=== PATIENT | male | born 1970 | race Hispanic/Latino ===

== ENCOUNTER 2018-12-17 11:06 | Day surgery (SDC) | payer OTHER, BC | END 2018-12-18 14:30 | disposition home or self-care (01) | LOC: CATH 11:06 → CCU 14:31 | DX: I21.4 Non-ST elevation (NSTEMI) myocardial infarction (principal); I25.10 Atherosclerotic heart disease of native coronary artery without angina pectoris; I10 Essential (primary) hypertension; Z95.5 Presence of coronary angioplasty implant and graft ==

== ENCOUNTER 2018-12-29 06:04 | Day surgery (SDC) | payer BC ==
[2018-12-17 22:27] VITALS: BMI 20.9
[2018-12-29] MEDS ORDERED: Lidocaine PF 2% (5 ml) Inj (For Cardiac Arrhy) ONE (06:55)
[2018-12-29] MEDS ORDERED: Iodixanol 320 MG/ML 100 ML BOTTLE IV ONE (06:56)
[2018-12-29] MEDS ORDERED: Phenylephrine 10 mg/ml Inj ONE (06:56)
[2018-12-29] MEDS ORDERED: Iohexol 350mgl/ml 50 ML ONE (06:56)
[2018-12-29] MEDS ORDERED: Nitroglycerin 50mg in D5W 50 MG/250 ML BOTTLE IV ONE (06:56)
[2018-12-29] MEDS ORDERED: Iodixanol 320 MG/ML 200 ML BOTTLE IV ONE (06:56)
[2018-12-29 07:05] LABS: BASO # 0.01 K/mm3 (0.0-2.0); BASO % 0.2 % (0.0-3.0); EOS # 0.2 (0.0-0.7); EOS % 3.5 % (1.5-5.0); HEMOGLOBIN 14.7 g/dL (14.0-18.0); LYMPH % 20.9 % (22.0-35.0); MEAN CELL VOLUME 91.6 fl (80.0-105.0); MEAN CORPUSCULAR HEMOGLOBIN 30.2 pg (25.0-35.0); MEAN PLATELET VOLUME 11.2 fl (7.0-11.0); MONO # 0.7 (0.1-0.6); MONO % 14.6 % (1.0-6.0); RBC 4.86 10^6/uL (3.5-6.1); RED CELL DISTRIBUTION WIDTH 12.8 % (11.5-14.5); WHITE BLOOD COUNT 4.8 10^3/uL (4.5-11.0)
[2018-12-29 07:10] LABS: INR 1.11; PARTIAL THROMBOPLASTIN TIME 32.7 Seconds (26.9-38.3); PROTHROMBIN TIME 12.5 SECONDS (9.4-12.5)
[2018-12-29 07:15] VITALS: O2SAT 97
[2018-12-29 07:20] LABS: BLOOD UREA NITROGEN 20 mg/dL (7-21); GFR NON-AFRICAN AMERICAN > 60
[2018-12-29] MEDS ORDERED: Midazolam 2 MG/2 ML VIAL ONE ×3 (07:51→08:14)
[2018-12-29] MEDS ORDERED: Sodium Chloride 0.9% 1,000 ML IV SCH (09:30)
--- NOTE | 2018-12-29 15:06 | CARDCATH ---
PROCEDURE DATE: 12/29/2018 HISTORY: The patient is a 48-year-old male with aggressive atherosclerosis who has documented multivessel PTCA and stent and has had multiple procedures in the past. He presents for PTCA of the RCA. The left femoral artery was cannulated with 6-Gambian sheath. There were no complications. I performed moderate sedation which included the presence of an independent trained observer that assisted in monitoring the patient's level of consciousness and physiologic status. After administration of Versed and fentanyl, my intra service time was 45 minutes. The findings on catheterization revealed a right dominant circulation. The RCA revealed 90% stenosis in its proximal portion as well as 90% stenosis in a small posterior lateral branch. The left main artery was unremarkable. The proximal LAD revealed a long 50-60% stenosis which is unchanged from his previous. The stent in the mid LAD, which was placed recently, is patent. There is diffuse atherosclerosis throughout its coronary tree. Circumflex artery revealed a patent stent in its midportion with 40-50% stenosis in the proximal circumflex artery. The patient was started on intravenous Angiomax on the fluoroscopic guide, the guider was placed in the ostium of the RCA using an ATW wire as well as a guide liner for better support, the posterior lateral branch was angioplastied with a 2.0 balloon. Because of the caliber of the posterior lateral branch, no stent was placed. Repeat coronary arteriography revealed improvement of the lesion. The proximal RCA stenoses was stented with a 2.75 x 12 mm drug-eluting stent followed by a 3.08-mm stent. Repeat coronary arteriography revealed an excellent result with no residual stenosis and GINA-3 flow. Angio-Seal did not obtain hemostasis which required prolonged manual compression. IMPRESSION: In summary, the procedure was successful percutaneous transluminal coronary angioplasty and stent of a proximal right coronary artery with drug-eluting stent as well as percutaneous transluminal coronary angioplasty of distal right coronary artery. Cardiac catheterization reveals patent stents in the circumflex artery and left anterior descending as well as diffuse atherosclerosis throughout its coronary tree. PRU testing revealed therapeutic Plavix. Given these findings, the patient will need to remain on aspirin indefinitely and Plavix for at least a year. The patient has been taking statin therapy for more than 8 years and yet his atherosclerosis continues to be aggressive. I have discussed with the family about the need for Repatha to help reduce the chance of progressive atherosclerosis. Daniel Jackson MD
[2018-12-29 16:15] LABS: HEMOGLOBIN 14.2 g/dL (14.0-18.0); MEAN CELL VOLUME 91.8 fl (80.0-105.0); MEAN CORPUSCULAR HEMOGLOBIN 30.6 pg (25.0-35.0); MEAN CORPUSCULAR HGB CONC 33.3 g/dl (31.0-37.0); MEAN PLATELET VOLUME 10.6 fl (7.0-11.0); RBC 4.64 10^6/uL (3.5-6.1); RED CELL DISTRIBUTION WIDTH 12.8 % (11.5-14.5); WHITE BLOOD COUNT 5.4 10^3/uL (4.5-11.0)
[2018-12-29 16:19] LABS: BLOOD UREA NITROGEN 14 mg/dL (7-21); CALCIUM 9.5 mg/dL (8.4-10.5); GFR NON-AFRICAN AMERICAN > 60
[2018-12-29 17:24] VITALS: RESP 18
--- NOTE | 2018-12-29 22:31 | HP ---
DATE OF EXAM: 12/29/2018 HISTORY OF PRESENT ILLNESS: I was called by Dr. Jackson to take a look at him, put him on my service and admit him and do the H and P, he is status post cardiac cath with stents placed. He is a 48-year-old white male who presents with a history of needing a 5th heart stent as per his . He had some shortness of breath and not feeling well and Dr. Jackson took him to the laboratory tech and stented him. PAST MEDICAL HISTORY: He has a past medical history of CAD, coronary artery stents, and high cholesterol. FAMILY HISTORY: Cancer in the aunt, unknown type. He had balloon dilatation in 12/17/2018. Uncles have cardiovascular disease. No pacemaker. He did have chest pain and shortness of breath, which brought him to where he is right now. No depression or anxiety. SOCIAL HISTORY: He quit smoking 8 years ago. No alcohol. No drugs. PAST SURGICAL HISTORY: He did have history of surgeries, cardiac cath. ALLERGIES: NO KNOWN DRUG ALLERGIES. REVIEW OF SYSTEMS: No acute vision or hearing changes. No sore throat. No neck pain. He did have chest pain. He did have shortness of breath. No palpitations. No coughing or wheezing. No abdominal pain. No nausea, vomiting, constipation, or diarrhea. No skin issues that he knows of. He move all four extremities well. PHYSICAL EXAMINATION: VITAL SIGNS: He has a 97.7 temp, 53 pulse, 130/78 blood pressure, 18 respiratory rate, and 97% O2 sat on room air. HEENT: Head: Atraumatic and normocephalic. Extraocular muscles are intact. Pupils are equally reactive to light and accommodation. Throat is moist. NECK: Supple. Thyroid midline. No palpable appreciable lymphadenopathy. HEART: Regular rate. LUNGS: Decreased breath sounds, but clear to auscultation. No wheezes, rhonchi or rales. ABDOMEN: Soft and nontender. Positive bowel sounds. No guarding. No rebound. No CVA tenderness. EXTREMITIES: No edema. SKIN: He is lying flat, he cannot be move for what I could tell skin is intact. No apparent rashes or ulcers. NEUROLOGIC: Alert and oriented x3. Cranial nerves II through XII grossly intact. He is pleasant. No pain, status post cardiac cath. He has laid flat for 6 hours. LABORATORY DATA: He had blood tests. He has 143 sodium, potassium is 5.3, little elevated, we will check it tomorrow, BUN 20, creatinine 1.2, GFR is greater than 60, sugar is 95, and calcium is 10. INR is 1.11. White count is 4.8, hemoglobin is 14.7, hematocrit is 44.5, and platelets are 190. ASSESSMENT AND PLAN: He is currently on aspirin, Lipitor, Plavix, and IV fluids at 100. We will check his labs tomorrow, he laid flat for 6 hours. He could eat while lying flat and then will be able to get up and move around to the room. Hopefully, if he will do well tonight and tomorrow, discharge him tomorrow. He has chest pain, shortness of breath, coronary artery disease, and stents were placed by Dr. Daniel Jackson. Angelito Gomez DO MTDD
[2018-12-30 06:11] VITALS: BP 119/72; PULSE 60; TEMP 97.7
[2018-12-30 07:18] LABS: BASO # 0.02 K/mm3 (0.0-2.0); BASO % 0.4 % (0.0-3.0); EOS # 0.2 (0.0-0.7); EOS % 4.3 % (1.5-5.0); HEMOGLOBIN 14.7 g/dL (14.0-18.0); LYMPH # 1.3 (1.2-3.4); LYMPH % 23.9 % (22.0-35.0); MEAN CELL VOLUME 91.6 fl (80.0-105.0); MEAN CORPUSCULAR HEMOGLOBIN 30.1 pg (25.0-35.0); MEAN CORPUSCULAR HGB CONC 32.8 g/dl (31.0-37.0); MEAN PLATELET VOLUME 11.2 fl (7.0-11.0); MONO # 0.9 (0.1-0.6); RBC 4.89 10^6/uL (3.5-6.1); RED CELL DISTRIBUTION WIDTH 12.7 % (11.5-14.5); WHITE BLOOD COUNT 5.5 10^3/uL (4.5-11.0)
[2018-12-30 07:37] LABS: BLOOD UREA NITROGEN 13 mg/dL (7-21); CALCIUM 10.1 mg/dL (8.4-10.5); GFR NON-AFRICAN AMERICAN > 60
--- NOTE | 2018-12-30 12:33 | PN ---
DATE: 12/30/2018 SUBJECTIVE: The patient is chest pain free. OBJECTIVE: VITAL SIGNS: Blood pressure 119/72, the heart rates in the 60s. NECK: Negative JVD. LUNGS: Without rales. HEART: S1, S2. EXTREMITIES: Without edema. Left groin site is stable. LABORATORY DATA: Hemoglobin is 14.7, glucose is 119, BUN and creatinine unremarkable. IMPRESSION: 1. Stable post percutaneous transluminal coronary angioplasty and stent of the right coronary artery. 2. Multivessel coronary artery disease. 3. Diffuse atherosclerosis. 4. Resolution of chest pain. Given these findings, the patient will need to remain on aspirin indefinitely and Plavix for at least a year. He will continue on his statin therapy. Given the patient's aggressive atherosclerosis, and his failure on statin therapy, we will arrange for outpatient to help reduce his aggressive atherosclerosis picture. Daniel Jackson MD
--- NOTE | 2018-12-30 17:18 | CARD ---
APPROVED REPORT Date of service: 12/30/2018 EKG Measurement Heart [id number] <Conclusion> Normal sinus rhythm Normal ECG
--- NOTE | 2018-12-30 21:25 | DS ---
HISTORY OF PRESENT ILLNESS: He was brought in by Dr. Daniel Jackson for a cardiac cath and stent placement for his shortness of breath and chest discomfort and now he is status post recovery. He will be discharged this morning after Dr. Jackson sees him. MEDICATIONS: He is on Altace, Zetia, Lipitor, Ecotrin, vitamins, and Plavix. PHYSICAL EXAMINATION: VITAL SIGNS: He has a 97.7 temperature, 60 pulse, 119/72 blood pressure, and 18 respiratory rate. HEENT: Head; atraumatic and normocephalic. HEART: Regular rate. LUNGS: Clear to auscultation. ABDOMEN: Soft. EXTREMITIES: No edema. No chest pain. No shortness of breath. No abdominal pain. No leg pains. He is walking well. He is comfortable. LABORATORY DATA: He has a 5.5 white count, 14.7 hemoglobin, 44.8 hematocrit with 180 platelets. He has a 140 sodium, potassium is 5.2, BUN 13, creatinine 1.1, GFR is greater than 60, sugars 119, and calcium is 10.1. DISCHARGE INSTRUCTIONS: We will hold bananas when he goes home, avoid potassium, diet, and hopefully he will do very well. He will follow up with his primary care doctor and myself and his family living educator. Charles Phillips who has CAD and stents placed. Angelito Gomez DO
== END 2018-12-30 10:02 | disposition home or self-care (01) ==
LOC: CATH 06:04 → 2RSO 09:30 → CATH 12-30 10:02
PROVIDERS: ATTEND Internal Medicine Cardiovascular Disease
DX: I25.10 Atherosclerotic heart disease of native coronary artery without angina pectoris (principal); E78.00 Pure hypercholesterolemia, unspecified; Z79.02 Long term (current) use of antithrombotics/antiplatelets; Z79.82 Long term (current) use of aspirin; Z87.891 Personal history of nicotine dependence; Z95.5 Presence of coronary angioplasty implant and graft
CPT/HCPCS: 36415 ×2; 80048 ×2; 83735; 84100; 85025 ×2; 85027; 85576; 85610; 85730; 86850; 86900; 93005; 93454; 99152; 99153; C1725 ×2; C1760; C1769 ×3; C1874 ×2; C1887 ×2; C2629; C9600; J0583; J1644; J2250; J3010; J7030; Q9966; Q9967

== ENCOUNTER 2019-01-21 07:50 | Outpatient (CLI) | payer BC | END 2019-01-21 07:51 | disposition home or self-care (01) | LOC: RAD 07:50 ==

== ENCOUNTER 2019-01-23 10:16 | Day surgery (SDC) | payer BC ==
[2019-01-23 10:16] VITALS: BMI 20.9
[2019-01-23 11:10] LABS: BASO # 0.01 K/mm3 (0.0-2.0); BASO % 0.1 % (0.0-3.0); EOS % 0.1 % (1.5-5.0); HEMOGLOBIN 14.7 g/dL (14.0-18.0); LYMPH # 1.6 (1.2-3.4); LYMPH % 23.9 % (22.0-35.0); MEAN CELL VOLUME 92.7 fl (80.0-105.0); MEAN CORPUSCULAR HEMOGLOBIN 30.6 pg (25.0-35.0); MEAN PLATELET VOLUME 11.2 fl (7.0-11.0); MONO # 0.7 (0.1-0.6); MONO % 10.9 % (1.0-6.0); RBC 4.8 10^6/uL (3.5-6.1); RED CELL DISTRIBUTION WIDTH 13.4 % (11.5-14.5); WHITE BLOOD COUNT 6.8 10^3/uL (4.5-11.0)
--- NOTE | 2019-01-23 11:20 | RAD ---
Date of service: 01/23/2019 HISTORY: chest pain COMPARISON: No prior. TECHNIQUE: 1 view obtained. FINDINGS: LUNGS: No active pulmonary disease. PLEURA: No significant pleural effusion identified, no pneumothorax apparent. CARDIOVASCULAR: No aortic atherosclerotic calcification present. Normal cardiac size. No pulmonary vascular congestion. OSSEOUS STRUCTURES: No significant abnormalities. VISUALIZED UPPER ABDOMEN: Normal. OTHER FINDINGS: None. IMPRESSION: No active disease.
[2019-01-23 11:24] LABS: ALB/GLOB RATIO 1.5 (1.1-1.8); ALBUMIN 4.8 g/dL (3.0-4.8); ALT/SGPT 38 U/L (7-56); AST/SGOT 37 U/L (17-59); BLOOD UREA NITROGEN 21 mg/dL (7-21); CALCIUM 10.4 mg/dL (8.4-10.5); GFR NON-AFRICAN AMERICAN > 60
--- NOTE | 2019-01-23 11:33 | ED PDOC ---
Arrival/HPI - General Chief Complaint: Chest Pain Time Seen by Provider: 01/23/19 10:29 Historian: Patient - History of Present Illness Narrative History of Present Illness (Text): 01/23/19 11:32 48 year old male, whose past medical history includes CAD (stents x6: 2 on December 29, 3 on January 14, 1 6 years ago) and SC (last month), who presents to the ED for chest pain since last night. Patient reports pain is an intermittent and feels like pressure in the chest. Patient reports sublingual intake of NTG last night, with temporary improvement. Patient also reports he takes takes Aspirin and Plavix for his cardiac conditions. Patient notes he is otherwise asymptomatic and denies any fevers, chills, headache, dizziness, shortness of breath, dyspnea on exertion, cough, abdominal pain, nausea, vomiting, diarrhea, back pain, neck pain, urinary/bowel changes, or any other complaints. Color Straining Bag Washer: Dr. Jackson Time/Duration: Other (about 10 hours ago) Symptom Onset: Gradual Symptom Course: Unchanged Quality: Pressure Activities at Onset: Light Context: Home Past Medical History - Provider Review Nursing Documentation Reviewed: Yes - Cardiac Hx Cardiac Disorders: Yes (cad) Hx SC: Yes - Pulmonary Hx Respiratory Disorders: No - Neurological Hx Paralysis: No - HEENT Hx HEENT Disorder: No - Renal Hx Renal Disorder: No - Endocrine/Metabolic Hx Endocrine Disorders: No - Hematological/Oncological Hx Blood Transfusions: No - Integumentary Hx Dermatological Disorder: Yes (tatoos) - Musculoskeletal/Rheumatological Hx Musculoskeletal Disorders: No - Gastrointestinal Hx Gastrointestinal Disorders: No - Genitourinary/Gynecological Hx Genitourinary Disorders: No - Psychiatric Hx Emotional Abuse: No Hx Physical Abuse: No Hx Substance Use: No - Surgical History Hx Coronary Stent: Yes (x6) - Anesthesia Hx Anesthesia Reactions: No Hx Malignant Hyperthermia: No - Suicidal Assessment Feels Threatened In Home Enviroment: No Family/Social History - Physician Review Nursing Documentation Reviewed: Yes Family/Social History: Unknown Family HX Smoking Status: Former Smoker Hx Alcohol Use: No Hx Substance Use: No Allergies/Home Meds Allergies/Adverse Reactions: Allergies No Known Allergies Allergy (Verified 01/23/19 10:26) Home Medications: Home Meds Medication Instructions Recorded Confirmed Aspirin [Ecotrin] 81 mg PO DAILY 12/16/18 01/23/19 Atorvastatin [Lipitor] 80 mg PO DAILY 12/16/18 01/23/19 Ezetimibe [Zetia] 10 mg PO DAILY 12/16/18 01/23/19 Ramipril [Altace] 2.5 mg PO DAILY 12/16/18 01/23/19 Clopidogrel [Plavix] 75 mg PO DAILY 12/23/18 01/23/19 Mv-Min/Folic/Vit K/Lycop/Coq10 1 each PO DAILY 12/23/18 01/23/19 [Daily Multivitamin Capsule] Review of Systems - Physician Review All systems were reviewed & negative as marked: Yes - Review of Systems Constitutional: Normal. absent: Fevers Eyes: absent: Vision Changes ENT: absent: Hearing Changes Respiratory: absent: SOB, Cough Cardiovascular: Chest Pain Gastrointestinal: absent: Abdominal Pain, Vomiting Genitourinary Male: absent: Dysuria Musculoskeletal: absent: Back Pain Skin: absent: Rash Neurological: absent: Headache, Dizziness Endocrine: absent: Diaphoresis, Polyuria Hemo/Lymphatic: absent: Adenopathy, Easy Bleeding Psychiatric: absent: Anxiety, Depression Physical Exam Vital Signs Reviewed: Yes Vital Signs Temp Pulse Pulse Resp BP Pulse Ox 01/23/19 10:50 98.2 F 51 L 16 122/81 98 01/23/19 10:25 57 L 01/23/19 10:24 98.2 F 72 18 140/69 100 Temperature: Afebrile Blood Pressure: Normal Pulse: Regular Respiratory Rate: Normal Appearance: Positive for: Well-Appearing, Non-Toxic, Comfortable Mental Status: Positive for: Alert and Oriented X 3 - Systems Exam Head: Present: Atraumatic, Normocephalic Pupils: Present: PERRL Extroacular Muscles: Present: EOMI Conjunctiva: Present: Normal Mouth: Present: Moist Mucous Membranes Neck: Present: Normal Range of Motion Respiratory/Chest: Present: Clear to Auscultation, Good Air Exchange. No: Respiratory Distress, Accessory Muscle Use Cardiovascular: Present: Bradycardic. No: Murmurs Abdomen: No: Tenderness, Distention, Peritoneal Signs Upper Extremity: Present: Normal Inspection. No: Cyanosis, Edema Lower Extremity: Present: Normal Inspection. No: Edema Neurological: Present: GCS=15, CN II-XII Intact, Speech Normal Skin: Present: Warm, Dry, Normal Color. No: Rashes Psychiatric: Present: Alert, Oriented x 3, Normal Insight, Normal Concentration Medical Decision Making ED Course and Treatment: 01/23/19 11:46 Impression: 57 year old male who presents to the ED for chest pain. Differential Diagnosis included but are not limited to: Plan: -- EKG --Labs -- Aspirin -- Plavix -- Reassess and disposition Prior Visits: Notes and results from previous visits were reviewed. Progress Notes: 01/23/19 11:56 Labs reviewed with troponin negative and unremarkable CXR. Patient currently asymptomatic at this time. Discussed case with Dr. Jackson(cardiology) who states he will take patient to the laborer shellfish processing. Patient updated on plan and is in agreement. Nurse notified and updated on plan. - Lab Interpretations Lab Results: D-Dimer, Quantitative < 200 ng/mlDDU (0-243) 01/23/19 10:25 Total Bilirubin 1.7 mg/dL (0.2-1.3) H 01/23/19 10:25 AST 37 U/L (17-59) 01/23/19 10:25 ALT 38 U/L (7-56) 01/23/19 10:25 Alkaline Phosphatase 83 U/L (38-126) 01/23/19 10:25 Total Protein 8.0 g/dL (5.8-8.3) 01/23/19 10:25 Albumin 4.8 g/dL (3.0-4.8) 01/23/19 10:25 Globulin 3.2 gm/dL 01/23/19 10:25 Albumin/Globulin Ratio 1.5 (1.1-1.8) 01/23/19 10:25 I have reviewed the lab results: Yes - RAD Interpretation Narrative RAD Interpretations (Text): 01/23/19 12:03 Chest X-Ray IMPRESSION: No active disease. Radiology Orders: 01/23/19 10:49 CHEST PORTABLE [RAD] Stat - EKG Interpretation EKG Interpretation (Text): 01/23/19 13:42 EKG: -- Sinus bradycardia @ 55 bpm. -- No ST elevation. -- No T wave inversions. - Medication Orders Current Medication Orders: 01/23/19 12:00 Discontinued Medications Aspirin (Aspirin Chewable) 81 mg PO STAT STA Stop: 01/23/19 11:30 Last Admin: 01/23/19 11:36 Dose: 81 mg Clopidogrel Bisulfate (Plavix) 75 mg PO STAT STA Stop: 01/23/19 11:30 Last Admin: 01/23/19 11:36 Dose: 75 mg - Scribe Statement The provider has reviewed the documentation as recorded by the Cayla Salazar Provider Scribe Attestation: All medical record entries made by the Alejaibjanet were at my direction and personally dictated by me. I have reviewed the chart and agree that the record accurately reflects my personal performance of the history, physical exam, medical decision making, and the department course for this patient. I have also personally directed, reviewed, and agree with the discharge instructions and disposition. Disposition/Present on Arrival - Present on Arrival History of DVT/PE: No History of Uncontrolled Diabetes: No Urinary Catheter: No History of Decub. Ulcer: No History Surgical Site Infection Following: None - Disposition
[2019-01-23 11:42] LABS: B-TYPE NATRIURETIC PEPTIDE 70.2 pg/mL (0-450); TROPONIN I < 0.01 ng/mL
[2019-01-23] MEDS ORDERED: Iodixanol 320 MG/ML 100 ML BOTTLE IV ONE (12:08)
[2019-01-23] MEDS ORDERED: Lidocaine PF 2% (5 ml) Inj (For Cardiac Arrhy) ONE (12:08)
[2019-01-23] MEDS ORDERED: Iohexol 350mgl/ml 50 ML ONE (12:08)
[2019-01-23] MEDS ORDERED: Phenylephrine 10 mg/ml Inj ONE (12:08)
[2019-01-23] MEDS ORDERED: Iodixanol 320 MG/ML 200 ML BOTTLE IV ONE (12:08)
[2019-01-23] MEDS ORDERED: Midazolam 2 MG/2 ML VIAL ONE ×2 (12:28→12:40)
[2019-01-23] MEDS ORDERED: Nitroglycerin 50mg in D5W 50 MG/250 ML BOTTLE IV ONE (12:45)
[2019-01-23] MEDS ORDERED: Sodium Chloride 0.9% 1,000 ML IV SCH (13:30)
--- NOTE | 2019-01-23 22:11 | HP ---
DATE OF EXAM: 01/23/2019 HISTORY OF PRESENT ILLNESS: He is a 48-year-old man. I have known him for a few years. He presents to the emergency room with chest pain since last night, intermittent. He took a sublingual nitroglycerin with temporary improvement. He takes aspirin and Plavix for his cardiac condition. Otherwise okay. PAST MEDICAL HISTORY: He is a 48-year-old white man with history of CAD with 6 stents. He had an PA last month, gradual onset over 10 hours. He has CAD, he has PA, tattoos, 6 stents. FAMILY HISTORY: Unknown family history. SOCIAL HISTORY: A former smoker. No alcohol. No drugs. ALLERGIES: NO KNOWN DRUG ALLERGIES. MEDICATIONS: He is on Ecotrin, Lipitor, Zetia, Altace, Plavix and multivitamin. REVIEW OF SYSTEMS: No fevers. No acute vision changes. No hearing changes. No shortness of breath or cough. He had chest pain. Abdominal pain is not there. No vomiting. No constipation or diarrhea. No problems urinating. No back pain. No rash. No headaches. No dizziness. No adenopathy. No easy bleeding. No anxiety. No depression. PHYSICAL EXAMINATION GENERAL: He is well appearing, nontoxic, comfortable, alert and oriented x3. VITAL SIGNS: He has a 90.2 temperature, 61 pulse, 18 respiratory rate, 140/69 blood pressure, and 100% O2 sat on room air. HEENT: Head is atraumatic, normocephalic. Extraocular muscles are intact. Pupils equally react to light and accommodation. Throat is moist. NECK: Supple. HEART: Regular rate. LUNGS: Decreased breath sounds but clear to auscultation. ABDOMEN: Soft, nontender. Positive bowel sounds. No guarding. No rebound. No CVA tenderness. EXTREMITIES: No edema. NEUROLOGIC: GCS is 15. Cranial nerves II through XII grossly intact. Normal speech. Alert and oriented x3. SKIN: Warm and dry. No apparent rashes or ulcers. He does have multiple tattoos. LYMPHATICS: Thyroid midline. No palpable appreciable lymphadenopathy. He is comfortable in bed. LABORATORY DATA: He had multiple tests. Chest x-ray was okay. He has a 143 sodium, potassium 4.5, BUN 21, creatinine 0.1, GFR is greater than 60, sugar is 76, calcium is 10.4, magnesium 2.1, total bili is 1.7 high. AST is 37, ALT 38, alk phos 83. Troponin I is less than 0.01. BNP is 70.2, total protein is 8. D-dimer is less 200. He has a 6.8 white count, 14.7 hemoglobin, 44.5 hematocrit with platelets of 181. ASSESSMENT AND PLAN: He is being seen by Dr. Jackson. He had a cardiac catheterization with stent placement. He has now been lying in bed for 6 hours. Hopefully tomorrow when I come in we will be able to discharge him. He is here for chest pain, coronary artery disease, myocardial infarction history. Angelito Gomez DO
--- NOTE | 2019-01-23 22:27 | CARD ---
APPROVED REPORT Date of service: 01/23/2019 EKG Measurement Heart [id number] [id number] <Conclusion> Marked sinus bradycardia Abnormal ECG
--- NOTE | 2019-01-23 22:37 | CARD ---
APPROVED REPORT Date of service: 01/23/2019 EKG Measurement Heart [id number] DE [id number] <Conclusion> Sinus bradycardia Intraventricular conduction delay of RBBB type Otherwise normal ECG
[2019-01-24 02:51] VITALS: BP 125/64; PULSE 54; RESP 20; TEMP 97.4; O2SAT 97
[2019-01-24 07:55] LABS: BASO # 0.01 K/mm3 (0.0-2.0); BASO % 0.2 % (0.0-3.0); EOS % 0.2 % (1.5-5.0); HEMOGLOBIN 13.9 g/dL (14.0-18.0); LYMPH # 1.6 (1.2-3.4); LYMPH % 27.3 % (22.0-35.0); MEAN CELL VOLUME 92.4 fl (80.0-105.0); MEAN CORPUSCULAR HGB CONC 32.5 g/dl (31.0-37.0); MEAN PLATELET VOLUME 11.6 fl (7.0-11.0); MONO # 0.6 (0.1-0.6); MONO % 10.6 % (1.0-6.0); RBC 4.63 10^6/uL (3.5-6.1); RED CELL DISTRIBUTION WIDTH 13.3 % (11.5-14.5); WHITE BLOOD COUNT 5.9 10^3/uL (4.5-11.0)
[2019-01-24 08:14] LABS: BLOOD UREA NITROGEN 15 mg/dL (7-21); GFR NON-AFRICAN AMERICAN > 60
--- NOTE | 2019-01-24 20:20 | DS ---
HISTORY OF PRESENT ILLNESS: He is sitting up in bed. He is very comfortable. He is smiling. He is happy. He ate breakfast well. He is in good spirits. No chest pain. No shortness of breath. No abdominal pain. He feels better. PHYSICAL EXAMINATION: VITAL SIGNS: Temperature 97.4, pulse 64, blood pressure 125/64, respiratory rate 20, and 97% O2 sat on room air. HEENT: Head is atraumatic, normocephalic. HEART: Regular rate. LUNGS: Decreased breath sounds, but clear. ABDOMEN: Soft, nontender. Positive bowel sounds. EXTREMITIES: No edema. LABORATORY DATA: He has a white count 6.9, hemoglobin 13.9, hematocrit 42.8 with platelets 156. He had less than 200 D-dimer. Sodium 140, BUN 15, creatinine 1, GFR greater than 60, sugar is 71, calcium is 10 a little low. ASSESSMENT AND PLAN: He is here with his I believe and they are happy that he is doing well. He will going home on his aspirin, Lipitor, Plavix, Zetia, Altace, he asked for renewal of his nitroglycerin sublingual, Plavix. He will follow up with Dr. Jackson next week, he has an appointment already he tells me. Sugar low, salt low, cholesterol diet. Followup with Dr. Jackson next week. Angelito Gomez DO MTDD
--- NOTE | 2019-01-27 13:48 | CARDCATH ---
PROCEDURE DATE: 01/23/2019 HISTORY: The patient is a 48-year-old male with history of aggressive coronary artery disease and multiple stents in the past who presents with 2 days of recurrent angina. The patient was brought up from the emergency room because of his ongoing symptoms for cardiac catheterization. PROCEDURES: Emergency cardiac catheterization and percutaneous transluminal coronary angioplasty. The right femoral artery was cannulated with 6-Kyrgyz sheath. There were no complications. I performed moderate sedation which included the presence of an independent trained observer that assisted in monitoring the patient's level of consciousness and physiologic status. After administration of Versed and fentanyl, my intra-service time was 45 minutes. Findings on catheterization revealed the left main artery is unremarkable. The LAD in its proximal portion revealed 80% stenoses which was 50% to 60% in the past. There is a patent stent in the mid LAD. The circumflex artery revealed patent stent in the midportion as well as a 40% to 50% stenosis in the proximal portion. The proximal RCA revealed a patent stent. LV function is normal. The patient was started on Angiomax. Under the fluoroscopic guide, the guiding catheter was placed in the ostium of the left main. An 0.04 ATW wire was used to cross the proximal LAD lesion. A drug-eluting stent was placed and deployed in the proximal LAD stent with excellent results with no residual stenosis and GINA III flow. Manual compression was used to close the femoral artery site. The patient tolerated the procedure well. In summary, the procedure was successful PTCA and stent of a proximal LAD stenosis with a drug-eluting stent. Cardiac catheterization revealed patent stents at all three coronary arteries with normal LV function. Given these findings, the patient will need to remain on aspirin indefinitely and antiplatelet for at least a year. We will continue statin therapy. We have applied to place the patient on Repatha given his aggressive nature of his coronary disease in the hopes of reducing new coronary lesions. Daniel Jackson MD
== END 2019-01-24 12:03 | disposition home or self-care (01) ==
LOC: ED 10:16 → CATH 12:18 → 2RSO 14:40 → CATH 01-24 12:03
PROVIDERS: ATTEND Internal Medicine Cardiovascular Disease
DX: I25.119 Atherosclerotic heart disease of native coronary artery with unspecified angina pectoris (principal); Z95.5 Presence of coronary angioplasty implant and graft; I25.2 Old myocardial infarction; I45.10 Unspecified right bundle-branch block; Z79.82 Long term (current) use of aspirin; Z79.02 Long term (current) use of antithrombotics/antiplatelets; Z79.899 Other long term (current) drug therapy; Z87.891 Personal history of nicotine dependence
CPT/HCPCS: 36415; 71045; 80048; 80053; 83735; 83880; 84484; 85025 ×2; 85378; 92978; 93005; 93458; 99152; 99153; 99283; C1753; C1760; C1769 ×2; C1874; C1887 ×2; C2629; C9600; J0583; J1644; J2250; J3010; J7030; J7040; Q9966; Q9967 ×2